=== PATIENT | female | born 1930 | race Caucasian/White ===

== ENCOUNTER → 2016-12-24 | Outpatient (CLI) | payer MEDICARE, OTHER ==
[~2016-12-24] MED LIST: ASPI81TA18 PO; CALC-192 PO; CEFD300C37 PO; CHOL400D3 PO; DOCU100C PO; DOXY100T PO; LEVO112T25 PO; LISI-167 PO; OMEP-110 PO; SENN8.6T4 PO; SERT25TA3 PO; TEMA7.5C PO; VIT1TABL32 PO
[2016-12-24 13:40] LABS: ASPARTATE AMINO TRANSFERASE 19 U/L (15-37); BLOOD UREA NITROGEN 29 mg/dL (7-18)
== END | disposition home or self-care (01) ==
LOC: CFH 11:42
PROVIDERS: ATTEND Nurse Practitioner Family
DX: E03.9 Hypothyroidism, unspecified (principal); I10 Essential (primary) hypertension; E78.5 Hyperlipidemia, unspecified; K21.9 Gastro-esophageal reflux disease without esophagitis; M81.0 Age-related osteoporosis without current pathological fracture; M48.50XS Collapsed vertebra, not elsewhere classified, site unspecified, sequela of fracture
CPT/HCPCS: 36415; 80053; 80061; 82306; 84443; 85025